=== PATIENT | male | born 1955 | race African-American/Black ===

== ENCOUNTER 2016-09-13 10:13 | Emergency (ER) | payer OTHER ==
[2016-09-13 10:18] VITALS: BP 192/93
[2016-09-13] MEDS ORDERED: LIDOCAINE 2% URO-JET 5 ML KIT MM ONE ×2 (10:25→10:26)
--- NOTE | 2016-09-13 10:28 | ER Document Report ---
ED GI/ - General Chief Complaint: Trouble Voiding Stated Complaint: URINARY PAIN Notes: The patient is a 61-year-old male, past medical history BPH, presents with 7 hours of inability to urinate. He takes Flomax daily. He has never had urinary retention in the past. Denies fevers, flank pain, nausea, vomiting, testicular or penile pain. I have greeted and performed a rapid initial assessment of this patient. A comprehensive ED assessment and evaluation of the patient, analysis of test results and completion of the medical decision making process will be conducted by additional ED providers. TRAVEL OUTSIDE OF THE [place] IN LAST 30 DAYS: No Past Medical History - General Information source: Patient - Social History Smoking Status: Unknown if Ever Smoked Family History: Reviewed & Not Pertinent Renal/ Medical History: Denies: Hx Peritoneal Dialysis Review of Systems - Review of Systems Notes: REVIEW OF SYSTEMS: CONSTITUTIONAL: -fevers, -chills EENT: -eye pain, -difficulty swallowing, -nasal congestion CARDIOVASCULAR:-chest pain, -syncope. RESPIRATORY: -cough, -SOB GASTROINTESTINAL: -abdominal pain, - nausea, -vomiting, -diarrhea GENITOURINARY: +urinary retention, -dysuria, -hematuria MUSCULOSKELETAL: -back pain, -neck pain SKIN: -rash or skin lesions. HEMATOLOGIC: -easy bruising or bleeding. LYMPHATIC: -swollen, enlarged glands. NEUROLOGICAL: -altered mental status or loss of consciousness, -headache, - neurologic symptoms PSYCHIATRIC: -anxiety, -depression. ALL OTHER SYSTEMS REVIEWED AND NEGATIVE. Physical Exam - Vital signs Vitals: Temp Pulse Resp BP Pulse Ox 98.2 F 130 H 20 192/93 H 98 09/13/16 10:15 09/13/16 10:15 09/13/16 10:15 09/13/16 10:15 09/13/16 10:15 - Notes Notes: PHYSICAL EXAMINATION: GENERAL: Uncomfortable HEAD: Atraumatic, normocephalic. EYES: Pupils equal round and reactive to light, extraocular movements intact, sclera anicteric, conjunctiva are normal. ENT: nares patent, oropharynx clear without exudates. Moist mucous membranes. NECK: Normal range of motion, supple without lymphadenopathy LUNGS: Breath sounds clear to auscultation bilaterally and equal. No wheezes rales or rhonchi. HEART: Tachycardic ABDOMEN: Suprapubic fullness, normoactive bowel sounds. No guarding, no rebound. No masses appreciated. EXTREMITIES: Normal range of motion, no pitting or edema. No cyanosis. NEUROLOGICAL: Cranial nerves grossly intact. Normal speech, normal gait. Normal sensory, motor, and reflex exams. SKIN: Warm, Dry, normal turgor, no rashes or lesions noted. Course - Vital Signs Vital signs: Temp Pulse Resp BP Pulse Ox 98.2 F 130 H 20 192/93 H 98 09/13/16 10:15 09/13/16 10:15 09/13/16 10:15 09/13/16 10:09/13/16 10:15
--- NOTE | 2016-09-13 10:43 | ER Document Report ---
ED General - General Chief Complaint: Trouble Voiding Stated Complaint: URINARY PAIN Time seen by provider: 10:25 Mode of Arrival: Ambulatory Information source: Patient Notes: 61-year-old male reports he woke up at 4:00 this morning with urinary urgency and inability to void. Patient says he's been told his prostate enlarged is followed by Dr. Segovia for that and has been on Flomax but forgot to take last night's dose. He reports he's never had problems with urinary retention before. He reports he saw Dr. Wang of urology last year for prostate cancer screening says he's been told he does not have that. He reports is intermittently had some urinary urgency and dysuria over the past 2 weeks. He denies fever, chills, nausea, vomiting, cough, shortness breath, chest pain, back pain, abdominal pain other than suprapubic discomfort this morning. He denies any hematuria. Patient had Escamilla catheter placed just prior to my examination and reports complete relief of all symptoms. Physical Exam: General: Alert, appears well. HEENT: Normocephalic. Atraumatic. PERRLA. Extraocular movements intact. Oropharynx clear. Neck: Supple. Non-tender. Respiratory: No respiratory distress. Clear and equal breath sounds bilaterally. Cardiovascular: Regular rate and rhythm. Abdominal: Normal Inspection. Soft, non-tender. No distension. Normal Bowel Sounds. normal male testes ongoing no masses no hernias uncircumcised catheter in place rectal normal tone and brown stool prostate enlarged but not tender Back: Non-tender. No deformity or step off. Extremities: Extremities warm to plus pulses of cyanosis no edema no Homans sign Neurological: Speech clear mentation normal moves extremities well Psychological: Normal affect. Normal Mood. Skin: Warm. Dry. Normal color. TRAVEL OUTSIDE OF THE [place] IN LAST 30 DAYS: No Past Medical History - General Information source: Patient - Social History Smoking Status: Never Smoker Family History: Hypertension - Father - Past Medical History Cardiac Medical History: Reports: Hx Hypertension Renal/ Medical History: Denies: Hx Peritoneal Dialysis Past Surgical History: Reports: Hx Cholecystectomy Review of Systems - Review of Systems Constitutional: denies: Chills, Fever, Malaise, Weakness EENT: denies: Ear pain, Nose discharge, Throat pain Cardiovascular: denies: Chest pain, Dyspnea, Syncope Respiratory: denies: Cough, Short of breath Gastrointestinal: See HPI. denies: Diarrhea, Nausea, Vomiting, Blood in vomit, Black stools, Rectal bleeding Genitourinary: See HPI Male Genitourinary: denies: Testicular pain Musculoskeletal: denies: Back pain, Leg swelling, Ankle swelling Skin: denies: Rash Hematologic/Lymphatic: denies: Swollen glands Neurological/Psychological: denies: Weakness, Numbness Physical Exam - Vital signs Vitals: Temp Pulse Resp BP Pulse Ox 98.2 F 130 H 20 192/93 H 98 09/13/16 10:15 09/13/16 10:15 09/13/16 10:15 09/13/16 10:15 09/13/16 10:15 Course - Re-evaluation Re-evalutation: 09/13/16 11:11 Urine cultures been sent. 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 I instructed the patient if cannot be seen by a urologist in an office tomorrow for catheter removal he can come back here tomorrow or in 2 days and we can remove it here but that regardless he does need a urology follow-up. He has already taken the Flomax dose he missed last nightthis morning and I have instructed him to continue taking that dose as normal tonight - Vital Signs Vital signs: Temp Pulse Resp BP Pulse Ox 98.2 F 130 H 20 192/93 H 98 09/13/16 10:15 09/13/16 10:15 09/13/16 10:15 09/13/16 10:15 09/13/16 10:15 - Laboratory Laboratory results interpreted by me: 09/13/16 10:35 Urine Blood SMALL H Urinalysis is negative stool guaiac negative Discharge - Discharge Clinical Impression: Acute urinary retention Condition: Stable Disposition: HOME, SELF-CARE Additional Instructions: Escamilla Catheter Care Tube Position: Keep the catheter connected to the drainage tubing at all times. Avoid pulling on the catheter. Keep the drainage tube taped to the mid- thigh, on top of your leg (not underneath it). Be sure there are no kinks or loops in the tube. Keep the drainage bag below the bladder. When in bed, the drainage bag should hang below the abdomen but should not lie on the floor. The drainage bag has hooks at the top so it can be hung on a chair or bed. Daily Cleaning: Wash your hands with soap and water before and after caring for your catheter. Twice a day, clean yourself where the catheter goes into the urethra. Use a warm, soapy wash cloth to clean around the urethral opening and the first few inches of the catheter. Females should wash from front to back to decrease the risk of infection from fecal material. After washing with soap, rinse the area with water. Do not put powder around the catheter. Apply ointment only if instructed by your doctor or nurse. Follow up if you develop fever or chills, flank or abdominal pain, blood in the urine, or if urine is not draining into the catheter. Urinary Retention Urinary retention is inability to empty the bladder. It can result from a urine infection, or from mechanical problems such as an enlarged prostate gland or swelling of the urethra. Drugs or alcohol can also lead to urine retention. The condition is usually treated by passage of a catheter. If the physician thinks the problem will continue, the catheter may be left in place for a few days. Sometimes drugs are used to stimulate the bladder if the physician feels that inadequate bladder contraction is the cause. If the condition leading to the retention is a chronic one, such as an enlarged prostate, you will be referred to a specialist for further care. Call the physician or return if you develop fever, flank or back pain, pain on urination, or recurrent difficulty passing the urine. We are giving you numbers for several urology clinics in [facility]. You need to see a urologist for follow-up of your problem with urinary retention. The catheter needs to come out within the next 3 days but needs to stay and at least overnight. If no urologist can see you tomorrow he can return to the emergency department for catheter removal in 2 days but he will still need to see a urologist for follow-up after that. Continue taking your Flomax as you usually do Referrals: RENATE SEGOVIA MD [ACTIVE STAFF] - Follow up in 1 week [facility] [Provider Group] - Follow up tomorrow [facility] [Provider Group] - Follow up tomorrow [facility] [Provider Group] - Follow up tomorrow [facility] [Provider Group] - Follow up tomorrow
[2016-09-13 11:04] LABS: APPEARANCE,URINE CLEAR; BILIRUBIN,URINE NEGATIVE (NEGATIVE); GLUCOSE, URINE NEGATIVE (NEGATIVE); KETONES,URINE NEGATIVE (NEGATIVE); LEUKOCYTE ESTERASE,URINE NEGATIVE (NEGATIVE); NITRITE,URINE NEGATIVE (NEGATIVE); PROTEIN,URINE NEGATIVE (NEGATIVE); URINE SPECIFIC GRAVITY 1.013; UROBILINOGEN,URINE NEGATIVE mg/dL (<2.0)
== END 2016-09-13 11:30 | disposition home or self-care (01) ==
LOC: ER 10:13
DX: R33.9 Retention of urine, unspecified (principal); R30.9 Painful micturition, unspecified
CPT/HCPCS: 51702; 81001; 82272; 87086; 99283

== ENCOUNTER → 2016-10-17 | Outpatient (CLI) | payer OTHER | LOC: LAB 09:00 | PROVIDERS: ATTEND Urology | DX: R97.20 Elevated prostate specific antigen [PSA] (principal) | CPT/HCPCS: 36415; 84154 ==

== ENCOUNTER → 2017-06-18 | Outpatient (CLI) | payer OTHER ==
--- NOTE | 2017-06-18 15:16 | RADIOLOGY REPORT (SQ) ---
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 NUMBER OF VIEWS: Four views. TECHNIQUE: AP, lateral, and both oblique radiographic images acquired of the right knee. LIMITATIONS: None. FINDINGS: MINERALIZATION: Normal. BONES: No acute fracture or dislocation. No worrisome bone lesions. JOINT: Small effusion. SOFT TISSUES: No soft tissue swelling. No radio-opaque foreign body. OTHER: No other significant finding. IMPRESSION: Small joint effusion. TECHNICAL DOCUMENTATION: JOB ID: [id number] [email or web address]- All Rights Reserved
== END ==
LOC: OD 11:20
PROVIDERS: ATTEND Internal Medicine
DX: M10.061 Idiopathic gout, right knee (principal)

== ENCOUNTER 2017-06-26 13:11 | Emergency (ER) | payer OTHER ==
[2017-06-26 13:26] VITALS: BP 110/85
[2017-06-26 14:27] LABS: APPEARANCE,URINE SLIGHTLY-CLOUDY; BILIRUBIN,URINE NEGATIVE (NEGATIVE); COLOR,URINE YELLOW; GLUCOSE, URINE NEGATIVE (NEGATIVE); KETONES,URINE NEGATIVE (NEGATIVE); LEUKOCYTE ESTERASE,URINE NEGATIVE (NEGATIVE); NITRITE,URINE NEGATIVE (NEGATIVE); PROTEIN,URINE NEGATIVE (NEGATIVE); URINE SPECIFIC GRAVITY 1.017; UROBILINOGEN,URINE NEGATIVE mg/dL (<2.0)
--- NOTE | 2017-06-26 14:27 | ER Document Report ---
ED General - General Chief Complaint: Urinary Problem Stated Complaint: URINATION ISSUES Time Seen by Provider: 06/26/17 13:38 Mode of Arrival: Ambulatory Information source: Patient Notes: Patient presents with severe lower abdominal pain and the inability to urinate. He states it is severe and constant. Nothing makes it better or worse. He states he has had this once before and required a catheter. Patient denies any fevers or vomiting. No trouble with bowel movements. The pain does radiate down into his penis. It is severe and sharp. TRAVEL OUTSIDE OF THE [place] IN LAST 30 DAYS: No - Related Data Allergies/Adverse Reactions: No Known Allergies Allergy (Unverified 06/26/17 13:16) Past Medical History - General Information source: Patient - Social History Smoking Status: Never Smoker Frequency of alcohol use: Rare Drug Abuse: None Family History: Hypertension - Father Patient has suicidal ideation: No Patient has homicidal ideation: No - Past Medical History Cardiac Medical History: Reports: Hx Hypercholesterolemia, Hx Hypertension Renal/ Medical History: Denies: Hx Peritoneal Dialysis Past Surgical History: Reports: Hx Cholecystectomy Review of Systems - Review of Systems Constitutional: denies: Chills, Fever Cardiovascular: denies: Chest pain, Palpitations Respiratory: denies: Cough, Short of breath -: Yes All other systems reviewed and negative Physical Exam - Vital signs Vitals: Temp Pulse Resp BP Pulse Ox 97.6 F 123 H 18 110/85 97 06/26/17 13:16 06/26/17 13:16 06/26/17 13:16 06/26/17 13:16 06/26/17 13:16 Interpretation: Tachycardic - General General appearance: Appears well, Alert - HEENT Head: Normocephalic, Atraumatic Eyes: Normal Pupils: PERRL - Respiratory Respiratory status: No respiratory distress Chest status: Nontender Breath sounds: Normal Chest palpation: Normal - Cardiovascular Rhythm: Regular Heart sounds: Normal auscultation Murmur: No - Abdominal Inspection: Normal Distension: No distension Bowel sounds: Normal Tenderness: Tender, Other - Patient has significant suprapubic abdominal pain to palpation. Organomegaly: No organomegaly - Back Back: Normal, Nontender - Extremities General upper extremity: Normal inspection, Nontender, Normal color, Normal ROM , Normal temperature General lower extremity: Normal inspection, Nontender, Normal color, Normal ROM , Normal temperature, Normal weight bearing. No: Jonna's sign - Neurological Neuro grossly intact: Yes Cognition: Normal Orientation: AAOx4 Clyde Coma Scale Eye Opening: Spontaneous Clyde Coma Scale Verbal: Oriented Hurricane Coma Scale Motor: Obeys Commands Clyde Coma Scale Total: 15 Speech: Normal Motor strength normal: LUE, RUE, LLE, RLE Sensory: Normal - Psychological Associated symptoms: Normal affect, Normal mood - Skin Skin Temperature: Warm Skin Moisture: Dry Skin Color: Normal Course - Re-evaluation Re-evalutation: 06/26/17 14:25 Escamilla catheter was placed. 850 mL of urine was returned. Patient states he feels much better. A leg bag was placed. - Vital Signs Vital signs: Temp Pulse Resp BP Pulse Ox 97.6 F 123 H 18 110/85 97 06/26/17 13:16 06/26/17 13:16 06/26/17 13:16 06/26/17 13:16 06/26/17 13:16 Discharge - Discharge Clinical Impression: Acute urinary retention Condition: Stable Disposition: HOME, SELF-CARE Instructions: Urinary Retention ([facility]) Additional Instructions: Please see your family doctor or your urologist in 2-3 days for possible removal of the catheter. Your blood pressure is elevated. Please have this rechecked within 1 week by your doctor. Forms: Elevated Blood Pressure
== END 2017-06-26 15:30 | disposition home or self-care (01) ==
LOC: ER 13:11
DX: R33.9 Retention of urine, unspecified (principal); R39.198 Other difficulties with micturition
CPT/HCPCS: 51702; 81001; 99283

== ENCOUNTER → 2017-07-26 | Outpatient (CLI) | payer OTHER ==
[2017-07-27 13:56] LABS: PROSTATE SPECIFIC ANTIGEN 6.2 ng/mL (0.0-4.0); PSA % FREE 20.5 % (.); PSA FREE 1.27 ng/mL
== END ==
LOC: LAB 08:15
PROVIDERS: ATTEND Urology
DX: R97.20 Elevated prostate specific antigen [PSA] (principal)
CPT/HCPCS: 36415; 84154

== ENCOUNTER 2019-05-11 16:43 | Emergency (ER) | payer OTHER ==
[2019-05-11] MEDS ORDERED: LIDOCAINE 2% URO-JET 5 ML KIT MM ONE (17:40)
--- NOTE | 2019-05-11 17:41 | ER Document Report ---
ED Medical Screen (RME) - General Chief Complaint: Urinary Retention Stated Complaint: UNABLE TO URINATE Time Seen by Provider: 05/11/19 17:37 Primary Care Provider: CHARLOTTE SCOTT MD [Primary Care Provider] - Follow up as needed Mode of Arrival: Ambulatory Information source: Patient Notes: Patient presents complaining of acute urinary retention and difficulty voiding. Patient states he is only dribbling urine all day. Patient reports lower abdominal pressure. No flank pain. No fever. Patient does report a history of BPH. I have greeted and performed a rapid initial assessment of this patient. A comprehensive ED assessment and evaluation of the patient, analysis of test results and completion of the medical decision making process will be conducted by additional ED providers. TRAVEL OUTSIDE OF THE [place] IN LAST 30 DAYS: No - Related Data Allergies/Adverse Reactions: No Known Allergies Allergy (Unverified 06/26/17 13:16) Past Medical History - Social History Chew tobacco use (# tins/day): No Frequency of alcohol use: None Drug Abuse: None - Past Medical History Cardiac Medical History: Reports: Hx Hypercholesterolemia, Hx Hypertension Renal/ Medical History: Denies: Hx Peritoneal Dialysis Past Surgical History: Reports: Hx Cholecystectomy Physical Exam - Vital signs Vitals: Temp Pulse Resp BP Pulse Ox 97.8 F 128 H 18 169/106 H 93 05/11/19 16:48 05/11/19 16:48 05/11/19 16:48 05/11/19 16:48 05/11/19 16:48 - Abdominal Tenderness: Tender - Lower pelvic tenderness Course - Vital Signs Vital signs: Temp Pulse Resp BP Pulse Ox 97.8 F 128 H 18 169/106 H 93 05/11/19 17:39 05/11/19 16:48 05/11/19 17:39 05/11/19 16:48 05/11/19 17:39 Doctor's Discharge - Discharge Referrals: CHARLOTTE SCOTT MD [Primary Care Provider] - Follow up as needed
[2019-05-11 18:51] LABS: ABSOLUTE BASOPHILS # (AUTO) 0.1 10^3/uL (0.0-0.2); ABSOLUTE EOSINOPHILS # (AUTO) 0.1 10^3/uL (0.0-0.6); ABSOLUTE LYMPHOCYTES (AUTO) 1.1 10^3/uL (0.5-4.7); ABSOLUTE MONOCYTES (AUTO) 0.4 10^3/uL (0.1-1.4); ABSOLUTE NEUT (AUTO) 7.6 10^3/uL (1.7-8.2); BASOPHILS % (AUTO) 0.6 % (0-2); EOSINOPHILS % (AUTO) 0.8 % (0-6); HEMATOCRIT 37.1 % (37.9-51.0); HEMOGLOBIN 12.7 g/dL (13.5-17.0); LYMPHOCYTES % (AUTO) 12.1 % (13-45); MEAN CORPUSCULAR HEMOGLOBIN 28.9 pg (27.0-33.4); MEAN CORPUSCULAR HGB CONC 34.3 g/dL (32.0-36.0); MEAN CORPUSCULAR VOLUME 84 fl (80-97); MONOCYTES % (AUTO) 4.1 % (3-13); PLATELET COUNT 267 10^3/uL (150-450); RED CELL DISTRIBUTION WIDTH 14.9 % (11.5-14.0); SEGMENTED NEUTROPHILS % (AUTO) 82.4 % (42-78); TOTAL CELLS COUNTED % (AUTO) 100 %; WHITE BLOOD COUNT 9.3 10^3/uL (4.0-10.5)
[2019-05-11 19:02] LABS: APPEARANCE,URINE CLEAR; BILIRUBIN,URINE NEGATIVE (NEGATIVE); COLOR,URINE YELLOW; GLUCOSE, URINE NEGATIVE (NEGATIVE); KETONES,URINE NEGATIVE (NEGATIVE); LEUKOCYTE ESTERASE,URINE NEGATIVE (NEGATIVE); NITRITE,URINE NEGATIVE (NEGATIVE); PROTEIN,URINE NEGATIVE (NEGATIVE); URINE SPECIFIC GRAVITY 1.014; UROBILINOGEN,URINE NEGATIVE mg/dL (<2.0)
[2019-05-11 19:09] LABS: ALKALINE PHOSPHATASE 62 U/L (38-126); ANION GAP 8 (5-19); ASPARTATE AMINO TRANSFERASE 26 U/L (17-59); BILIRUBIN,DIRECT 0.1 mg/dL (0.0-0.4); BILIRUBIN,TOTAL 0.4 mg/dL (0.2-1.3); BLOOD UREA NITROGEN 13 mg/dL (7-20); CALCIUM 9.4 mg/dL (8.4-10.2); CARBON DIOXIDE 28 mmol/L (22-30); CHLORIDE 102 mmol/L (98-107); GLUCOSE 109 mg/dL (75-110); POTASSIUM 3.5 mmol/L (3.6-5.0); TOTAL PROTEIN 7.6 g/dL (6.3-8.2)
--- NOTE | 2019-05-11 21:05 | ER Document Report ---
ED GI/ - General Chief Complaint: Urinary Retention Stated Complaint: UNABLE TO URINATE Time Seen by Provider: 05/11/19 17:37 Primary Care Provider: NIYAH SPEAR MD [NO LOCAL MD] - Follow up as needed RENATE SEGOVIA MD [ACTIVE STAFF] - Follow up as needed Mode of Arrival: Ambulatory Information source: Patient Notes: 63-year-old male with BPH presenting with acute urinary retention that began this morning. Patient reports history of similar episodes after forgetting to take his BPH medication. Patient denies any nausea, vomiting, fever, dysuria or any other symptoms. TRAVEL OUTSIDE OF THE [place] IN LAST 30 DAYS: No - Related Data Allergies/Adverse Reactions: No Known Allergies Allergy (Unverified 06/26/17 13:16) Past Medical History - General Information source: Patient - Social History Smoking Status: Former Smoker Chew tobacco use (# tins/day): No Frequency of alcohol use: None Drug Abuse: None Family History: Hypertension - Father Patient has suicidal ideation: No Patient has homicidal ideation: No - Past Medical History Cardiac Medical History: Reports: Hx Hypercholesterolemia, Hx Hypertension Renal/ Medical History: Denies: Hx Peritoneal Dialysis Past Surgical History: Reports: Hx Cholecystectomy Review of Systems - Review of Systems Constitutional: No symptoms reported EENT: No symptoms reported Cardiovascular: No symptoms reported Respiratory: No symptoms reported Gastrointestinal: No symptoms reported Genitourinary: Retention Male Genitourinary: No symptoms reported Musculoskeletal: No symptoms reported Skin: No symptoms reported Hematologic/Lymphatic: No symptoms reported Neurological/Psychological: No symptoms reported Physical Exam - Vital signs Vitals: Temp Pulse Resp BP Pulse Ox 97.8 F 128 H 18 169/106 H 93 05/11/19 16:48 05/11/19 16:48 05/11/19 16:48 05/11/19 16:48 05/11/19 16:48 - Notes Notes: PHYSICAL EXAMINATION: GENERAL: Well-appearing, well-nourished and in no acute distress. HEAD: Atraumatic, normocephalic. EYES: Pupils equal round and reactive to light, extraocular movements intact, sclera anicteric, conjunctiva are normal. ENT: Nares patent, oropharynx clear without exudates. Moist mucous membranes. NECK: Normal range of motion, supple without lymphadenopathy LUNGS: Breath sounds clear to auscultation bilaterally and equal. No wheezes rales or rhonchi. HEART: Regular rate and rhythm without murmurs ABDOMEN: Soft, nontender, mildly distended abdomen. No guarding, no rebound. No masses appreciated. Musculoskeletal: Normal range of motion, no pitting or edema. No cyanosis. NEUROLOGICAL: Cranial nerves grossly intact. Normal speech, normal gait. Normal sensory, motor exams PSYCH: Normal mood, normal affect. SKIN: Warm, Dry, normal turgor, no rashes or lesions noted. Course - Re-evaluation Re-evalutation: 05/11/19 21:04 At the time of my initial evaluation patient has had a Escamilla catheter placed by provider in triage. He has had approximately 600 to 700 cc of urinary output and states he feels much improved. Patient reports history of similar episodes, states he has been discharged home with catheter and has [facility] for removal in 1 to 2 days. Patient states the situation today occurred because he forgot to take his BPH medication. - Vital Signs Vital signs: Temp Pulse Resp BP Pulse Ox 99.0 F 107 H 18 153/69 H 95 05/11/19 20:43 05/11/19 20:43 05/11/19 17:39 05/11/19 20:43 05/11/19 20:43 - Laboratory Result Diagrams: 05/11/19 18:37 05/11/19 18:37 Laboratory results interpreted by me: 05/11/19 05/11/19 05/11/19 18:37 18:37 18:37 Hgb 12.7 L Hct 37.1 L RDW 14.9 H Lymph % (Auto) 12.1 L Seg Neutrophils % 82.4 H Potassium 3.5 L Urine Blood MODERATE H Discharge - Discharge Clinical Impression: Acute urinary retention Condition: Stable Disposition: HOME, SELF-CARE Additional Instructions: Urinary Retention Urinary retention is inability to empty the bladder. It can result from a urine infection, or from mechanical problems such as an enlarged prostate gland or swelling of the urethra. Drugs or alcohol can also lead to urine retention. The condition is usually treated by passage of a catheter. If the physician thinks the problem will continue, the catheter may be left in place for a few days. Sometimes drugs are used to stimulate the bladder if the physician feels that inadequate bladder contraction is the cause. If the condition leading to the retention is a chronic one, such as an enlarged prostate, you will be referred to a specialist for further care. Call the physician or return if you develop fever, flank or back pain, pain on urination, or recurrent difficulty passing the urine. Please follow-up with your primary care provider or the urologist that I have listed. Please call tomorrow to schedule an appointment. Please return to the emergency department if any of the above symptoms occur such as fever, flank or back pain. Referrals: RENATE SEGOVIA MD [ACTIVE STAFF] - Follow up as needed NIYAH SPEAR MD [NO LOCAL MD] - Follow up as needed
[2019-05-11 21:34] VITALS: BP 153/69
== END 2019-05-11 21:34 | disposition home or self-care (01) ==
LOC: ER 16:43
DX: N40.1 Benign prostatic hyperplasia with lower urinary tract symptoms (principal); R33.8 Other retention of urine; T50.906A Underdosing of unspecified drugs, medicaments and biological substances, initial encounter; Z91.138 Patient's unintentional underdosing of medication regimen for other reason; Z91.14 Patient's other noncompliance with medication regimen; I10 Essential (primary) hypertension
CPT/HCPCS: 99283; 51702; 36415; 85025; 80053; 81001; J3490

== ENCOUNTER 2019-08-30 12:42 | Emergency (ER) | payer OTHER ==
--- NOTE | 2019-08-30 12:54 | ER Document Report ---
ED Medical Screen (RME) - General Chief Complaint: Urinary Problem Stated Complaint: URINARY PROBLEM Time Seen by Provider: 08/30/19 12:48 Primary Care Provider: CHARLOTTE SCOTT MD [Primary Care Provider] - Follow up as needed TRAVEL OUTSIDE OF THE [place] IN LAST 30 DAYS: No - HPI Notes: 08/30/19 12:52 64-year-old male presents the ED for evaluation of urinary retention due to e nlarged prostate, states the last time he voided was last night and is currently dribbling. Patient has had issues with urinary retention in the past. Denies any fevers or chills,flank pain, numbness or tingling down bilateral lower legs. Patient has been to the ER in the past for similar issue. I have greeted and performed a rapid initial assessment of this patient. A comprehensive ED assessment and evaluation of the patient, analysis of test results and completion of the medical decision making process will be conducted by additional ED providers. PHYSICAL EXAMINATION: GENERAL: Well-appearing, well-nourished and in no acute distress. CV: s1, s2 regular LUNGS: No respiratory distress SKIN: Warm, Dry, normal turgor, no rashes or lesions noted. - Related Data Allergies/Adverse Reactions: No Known Allergies Allergy (Verified 08/30/19 12:49) Past Medical History - Past Medical History Cardiac Medical History: Reports: Hx Hypercholesterolemia, Hx Hypertension Renal/ Medical History: Denies: Hx Peritoneal Dialysis Past Surgical History: Reports: Hx Cholecystectomy Doctor's Discharge - Discharge Referrals: CHARLOTTE SCOTT MD [Primary Care Provider] - Follow up as needed
[2019-08-30 13:44] LABS: APPEARANCE,URINE SLIGHTLY-CLOUDY; BILIRUBIN,URINE NEGATIVE (NEGATIVE); COLOR,URINE YELLOW; GLUCOSE, URINE NEGATIVE (NEGATIVE); KETONES,URINE NEGATIVE (NEGATIVE); LEUKOCYTE ESTERASE,URINE NEGATIVE (NEGATIVE); NITRITE,URINE NEGATIVE (NEGATIVE); PROTEIN,URINE NEGATIVE (NEGATIVE); URINE SPECIFIC GRAVITY 1.015; UROBILINOGEN,URINE NEGATIVE mg/dL (<2.0)
[2019-08-30 14:29] VITALS: BP 141/66
--- NOTE | 2019-08-30 14:43 | ER Document Report ---
Entered by LUBNA CABRERA SCRIBE 08/30/19 1321 Acting as scribe for:PILY ALMEIDA MD ED GI/ - General Chief Complaint: Urinary Retention Stated Complaint: URINARY PROBLEM Time Seen by Provider: 08/30/19 12:48 Primary Care Provider: [facility] [Provider Group] - Follow up as needed CHARLOTTE SCOTT MD [[facility]] - Follow up as needed Information source: Patient Notes: This 64-year-old male patient with BPH presents to the emergency department today with complaints of urinary retention since yesterday evening. Patient has BPH and he has had to be catheterized in the past when he stopped taking his finasteride and tamsulosin. Patient states he does not think he has missed any medications recently. Patient states "it has been a good while" since the last time this happened. Patient states he does not have a urologist currently, but his PCP Dr. Segovia is working on setting him up with one now. Pertinent PMHx/PSHx: BPH (finasteride, tamsulosin) - additional PMHx/PSHx not pertinent to this visit as recorded. PCP: Dr. Segovia TRAVEL OUTSIDE OF THE [place] IN LAST 30 DAYS: No - Related Data Allergies/Adverse Reactions: No Known Allergies Allergy (Verified 08/30/19 12:49) Past Medical History - General Information source: Patient, [facility] Records - Social History Smoking Status: Never Smoker Cigarette use (# per day): No Frequency of alcohol use: Occasional Drug Abuse: None Lives with: Family Family History: Reviewed & Not Pertinent, Hypertension - Father Patient has suicidal ideation: No Patient has homicidal ideation: No - Past Medical History Cardiac Medical History: Reports: Hx Hypercholesterolemia, Hx Hypertension Renal/ Medical History: Reports: Hx Benign Prostatic Hyperplasia Past Surgical History: Reports: Hx Cholecystectomy Review of Systems - Review of Systems Constitutional: No symptoms reported EENT: No symptoms reported Cardiovascular: No symptoms reported Respiratory: No symptoms reported Gastrointestinal: No symptoms reported Genitourinary: See HPI, Retention Male Genitourinary: No symptoms reported Musculoskeletal: No symptoms reported Skin: No symptoms reported Hematologic/Lymphatic: No symptoms reported Neurological/Psychological: No symptoms reported -: Yes All other systems reviewed and negative Physical Exam - Vital signs Vitals: Temp Pulse Resp BP Pulse Ox 98.2 F 117 H 20 151/72 H 97 08/30/19 12:48 08/30/19 12:48 08/30/19 12:48 08/30/19 12:48 08/30/19 12:48 - Notes Notes: PHYSICAL EXAMINATION: GENERAL: Well-appearing, well-nourished and in no acute distress. HEAD: Atraumatic, normocephalic. EYES: Pupils equal round and reactive to light, extraocular movements intact, sclera anicteric, conjunctiva are normal. ENT: nares patent, oropharynx clear without exudates. Moist mucous membranes. NECK: Normal range of motion, supple without lymphadenopathy LUNGS: Breath sounds clear to auscultation bilaterally and equal. No wheezes rales or rhonchi. HEART: Regular rate and rhythm without murmurs ABDOMEN: Obese, soft, active bowel sounds. There is some suprapubic fullness and discomfort on palpation. No guarding, no rebound. EXTREMITIES: Normal range of motion, no pitting or edema. No cyanosis. NEUROLOGICAL: Cranial nerves grossly intact. Normal speech, normal gait. Normal sensory, motor, and reflex exams. PSYCH: Normal mood, normal affect. SKIN: Warm, Dry, normal turgor, no rashes or lesions noted. Course - Re-evaluation Re-evalutation: 08/30/19 13:46 The nurse reported the patient urinated about 450 mL's into a urinal after he arrived here. He then had a Escamilla catheter placed and at this point he is drained over 700 mL's additional urine. - Vital Signs Vital signs: Temp Pulse Resp BP Pulse Ox 98.4 F 91 18 141/66 H 97 08/30/19 14:28 08/30/19 14:28 08/30/19 14:28 08/30/19 14:28 08/30/19 14:28 - Laboratory Laboratory results interpreted by me: 08/30/19 12:54 Urine Blood SMALL H Discharge - Discharge Clinical Impression: Acute urinary retention BPH (benign prostatic hyperplasia) Qualifiers: Lower urinary tract symptom presence: symptoms present Lower urinary tract symptom detail: urinary retention Qualified Code(s): N40.1 - Benign prostatic hyperplasia with lower urinary tract symptoms; R33.8 - Other retention of urine Condition: Stable Disposition: HOME, SELF-CARE Additional Instructions: Urinary Retention Urinary retention is inability to empty the bladder. It can result from a urine infection, or from mechanical problems such as an enlarged prostate gland or swelling of the urethra. Drugs or alcohol can also lead to urine retention. The condition is usually treated by passage of a catheter. If the physician thinks the problem will continue, the catheter may be left in place for a few days. Sometimes drugs are used to stimulate the bladder if the physician feels that inadequate bladder contraction is the cause. If the condition leading to the retention is a chronic one, such as an enlarged prostate, you will be referred to a specialist for further care. Call the physician or return if you develop fever, flank or back pain, pain on urination, or recurrent difficulty passing the urine. Leave the catheter in until you see a urologist. Drink plenty of fluids throughout the day in the evening. Call [facility] office Saturday for an appointment this week. RETURN TO THE EMERGENCY ROOM IF ANY NEW OR WORSENING SYMPTOMS. Referrals: [facility] [Provider Group] - Follow up in 3-5 days RENATE SEGOVIA MD [Primary Care Provider] - Follow up as needed I personally performed the services described in the documentation, reviewed and edited the documentation which was dictated to the scribe in my presence, and it accurately records my words and actions.
== END 2019-08-30 14:48 | disposition home or self-care (01) ==
LOC: ER 12:42
DX: N40.1 Benign prostatic hyperplasia with lower urinary tract symptoms (principal); R33.8 Other retention of urine; Z79.899 Other long term (current) drug therapy; I10 Essential (primary) hypertension
CPT/HCPCS: 51702; 81001; 99283